=== PATIENT | female | born 1985 | race Caucasian/White ===

== ENCOUNTER 2017-06-06 10:37 | Emergency (ER) | payer OTHER ==
--- NOTE | 2017-06-06 11:35 | OBHP ---
Datetime: 06/06/2017 10:25 IP Adm Impression: , intrauterine ; No Active Labor IP Chief Complaint Other: Sent For NSt IP Adm Impression Other: NST Reactive IP Admit Plan: Discharge home Admit Comment, IP Provider: IUP at 36wks sent here today for NST after a BPP at the [facility] today. Pt de nies any Current complaints and feels good movements. Denies VB or LOF. [place]- occasional. FHR- Category 1. Assessment: IUP at 36wks NST Reactive. Plan: D/C Home. F/U with OB doctor. Pelvic Type - PN: Adequate Abdomen - PN: Normal Heart - PN: Normal Thyroid - PN: Normal General - PN: Normal FHR - Baseline A Provider: 140 Gestation - Est Wks by US: 36.2 IP Chief Complaint: evaluation NICHD Variability Prov Fetus A: Moderate 6-25bpm NICHD Accel Fetus A IP Provider: 15X15 FHR Category Provider Fetus A: Category I NICHD Decel Fetus A IP Provider: None
[2017-06-06 11:52] VITALS: RESP 20; TEMP 98
[2017-06-06 15:59] VITALS: BP 110/48; PULSE 91
== END 2017-06-06 11:51 | disposition home or self-care (01) ==
LOC: C.EROB 10:37
DX: Z36 Encounter for antenatal screening of mother (principal)